=== PATIENT | male | born 1985 | race Caucasian/White ===

== ENCOUNTER 2022-03-16 20:05 | Emergency (ER) | payer OTHER, SELFPAY ==
--- NOTE | ~2022-03-16 | XR_ITS ---
EXAMINATION: XR THORACOLUMBAR SPINE CLINICAL INFORMATION: Fall, back pain COMPARISON: Thoracic spine radiograph 08/07/2018 TECHNIQUE: 2 views of the thoracic spine 3 views of the lumbar spine the FINDINGS: No evidence for acute compression deformity in the thoracolumbar spine. Some increased sclerosis in the inferior endplate of L1 vertebral body anteriorly appears to be chronic. Alignment is normal. Sacroiliac joints are intact. Soft tissues unremarkable. XR/XR lumbar spine 2-3V IMPRESSION: No evidence for acute abnormality in the thoracolumbar spine.
--- NOTE | ~2022-03-16 | XR_ITS ---
EXAMINATION: XR THORACOLUMBAR SPINE CLINICAL INFORMATION: Fall, back pain COMPARISON: Thoracic spine radiograph 08/07/2018 TECHNIQUE: 2 views of the thoracic spine 3 views of the lumbar spine the FINDINGS: No evidence for acute compression deformity in the thoracolumbar spine. Some increased sclerosis in the inferior endplate of L1 vertebral body anteriorly appears to be chronic. Alignment is normal. Sacroiliac joints are intact. Soft tissues unremarkable. XR/XR thoracic spine 3V IMPRESSION: No evidence for acute abnormality in the thoracolumbar spine.
[2022-03-16 20:16] VITALS: BMI 29.8
[2022-03-16 21:10] VITALS: BP 128/85; PULSE 72; RESP 16; TEMP 36.4; O2SAT 97
[2022-03-16] MEDS: predniSONE 20 MG TABLET 40 MG PO (21:14)
--- NOTE | 2022-03-16 22:13 | ED.GENADULT ---
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 Patient states he fell due to slippery floor. Patient denies hitting head or loss of consciousness. He denies any chest pain, shortness of breath, dizziness, headache, or abdominal pain before falling. Patient states back pain worse on movement. Patient denies any other trauma or physical complaints. Related Data Previous Rx's Medication Instructions Recorded cyclobenzaprine 10 mg tablet 10 mg PO TID PRN 7 Days #21 tab 03/16/22 naproxen 500 mg tablet 500 mg PO BID PRN 10 Days #20 tab 03/16/22 prednisone 20 mg tablet 40 mg PO DAILY 5 Days #10 tab 03/16/22 Allergies Allergy/AdvReac Type Severity Reaction Status Date / Time No Known Allergies Allergy Unverified 08/07/20 19:12 [No Known Allergies*] Review of Systems Review of Systems: Back pain Yes all other systems are reviewed and are negative [facility] Social History Social History Advance Directives: No Advance Directives Information Provided: Yes Physical Exam ED Vital Signs: Vital Signs - 24 hr 03/16/22 21:10 Temperature 97.6 F Pulse Rate 72 Respiratory Rate 16 Blood Pressure 128/85 Pulse Oximetry 97 BMI result Body Mass Index 29.8 Const General: cooperative, healthy appearing, comfortable, no acute distress, well developed, alert, awake and Physically active Orientation/consciousness: patient oriented x3 HENMT Head: Yes normal to inspection, Yes No palpable skull fracture present, Yes normocephalic, Yes atraumatic and No abrasion Ears: hearing grossly normal bilaterally, external ears normal, TM's normal bilaterally, EAC's normal, mastoids normal and no periauricular adenopathy Eyes General: appearance normal, both eyes and all related structures Neck Neck: Yes normal visual inspection, Yes full ROM, Yes no lymphadenopathy, Yes no meningeal signs, Yes trachea midline, Yes supple, No anterior neck swelling and No tender Chest Chest palpation & inspection: normal inspection of the chest and normal palpation of entire chest wall Resp Effort & Inspection: normal respiratory effort and able to speak in complete sentences Auscultation: clear to auscultation bilaterally Cardio Jugular venous distension: no JVD Heart sounds: S1 normal heart sound present and S2 normal heart sound present GI Inspection: Yes normal to inspection and No abdominal wall ecchymosis Palpation (GI): Soft to palpation, not firm, nontender, no guarding and not rigid General: No CVA tenderness and Yes no CVA tenderness Back/Spine/Pelvis Back: no CVA tenderness, No CVA tenderness and back tenderness (Thoracic/lumbar tenderness) Skin General skin exam: no rashes or lesions noted and elasticity normal Neuro General: patient oriented x3, gait normal, tone normal, moves all extremities, Normal light touch and pain sensation, no meningeal signs, no focal motor deficits, CN's II-XI intact bilaterally and deep tendon reflexes 2+ bilaterally Extrem General: Yes normal to inspection and Yes full ROM Psych Appearance: grossly normal, well kempt and not disheveled Course Course Course Narrative: X-ray ordered. Toradol cancel due to patient taking Motrin 600 before before coming to the ER Reevaluation(s) Reevaluation #1: X-rays came back normal. Patient will be discharged with NSAIDs, muscle relaxer, and steroids. Patient given days off and told to follow up with [facility]. Time: 22:16 Discharge Plan Discharge Clinical Impression: Strain of lumbar region, Thoracic back pain Patient Disposition: Home, Self-Care Instructions: Low Back Strain (ED), Thoracic Back Strain (ED) Additional Instructions: Your x-rays came back negative for fractures. You will be discharged with NSAID/naproxen, muscle relaxer, and steroids. Do not take any other NSAIDs with naproxen prescription. Return to the ED immediately for worsening back pain, fever, chills, abdominal pain, nausea, vomiting, dysuria, hematuria, urinary/bowel incontinence, headache, dizziness, vomiting, or any other concerning symptoms. You need to follow-up with [facility]. Prescriptions: New naproxen 500 mg tablet 500 mg PO BID PRN (Reason: pain) 10 Days Qty: 20 0RF prednisone 20 mg tablet 40 mg PO DAILY 5 Days Qty: 10 0RF cyclobenzaprine 10 mg tablet 10 mg PO TID PRN (Reason: muscle spasm) 7 Days Qty: 21 0RF Rx Instructions: side effect is drowsiness. Do not take at work or while driving. Referrals: [facility] [Provider Group] (Fall at work. back pain) Stand Alone Forms: Work/School Release Interventions: ED Discharge Assessment Last Done: 03/16/22 22:43 Discharge Date/Time: 03/16/22 22:44 Print Language: Estonian
== END 2022-03-16 22:44 | disposition home or self-care (01) ==
PROVIDERS: Emergency Provider Emergency Medicine
DX: S39.012A Strain of muscle, fascia and tendon of lower back, initial encounter (principal); M54.6 Pain in thoracic spine; W01.0XXA Fall on same level from slipping, tripping and stumbling without subsequent striking against object, initial encounter; Y93.9 Activity, unspecified; Y92.9 Unspecified place or not applicable; Y99.0 Civilian activity done for income or pay
CPT/HCPCS: 72072; 72100; 96372; 99284

== ENCOUNTER → 2022-03-22 09:56 | Outpatient (BNVA) | payer OTHER, SELFPAY | PROVIDERS: Visit Provider Physician Assistant Medical | DX: S46.912A Strain of unspecified muscle, fascia and tendon at shoulder and upper arm level, left arm, initial encounter (principal); S29.012A Strain of muscle and tendon of back wall of thorax, initial encounter; S39.012A Strain of muscle, fascia and tendon of lower back, initial encounter; W01.0XXA Fall on same level from slipping, tripping and stumbling without subsequent striking against object, initial encounter | CPT/HCPCS: 99203 ==

== ENCOUNTER → 2022-03-25 08:05 | Outpatient (BNVA) | payer OTHER, SELFPAY | PROVIDERS: Visit Provider Physician Assistant Medical | DX: S46.912D Strain of unspecified muscle, fascia and tendon at shoulder and upper arm level, left arm, subsequent encounter (principal); S46.812D Strain of other muscles, fascia and tendons at shoulder and upper arm level, left arm, subsequent encounter; S29.012D Strain of muscle and tendon of back wall of thorax, subsequent encounter; S39.012D Strain of muscle, fascia and tendon of lower back, subsequent encounter; W19.XXXD Unspecified fall, subsequent encounter | CPT/HCPCS: 99213 ==

== ENCOUNTER → 2022-04-01 08:01 | Outpatient (BNVA) | payer OTHER, SELFPAY | PROVIDERS: Visit Provider Physician Assistant Medical | DX: S29.012D Strain of muscle and tendon of back wall of thorax, subsequent encounter (principal); S39.012D Strain of muscle, fascia and tendon of lower back, subsequent encounter; W19.XXXD Unspecified fall, subsequent encounter | CPT/HCPCS: 99213 ==

== ENCOUNTER → 2022-04-08 08:05 | Outpatient (BNVA) | payer OTHER, SELFPAY | PROVIDERS: Visit Provider Physician Assistant Medical | DX: S29.012D Strain of muscle and tendon of back wall of thorax, subsequent encounter (principal); S39.012D Strain of muscle, fascia and tendon of lower back, subsequent encounter; W19.XXXD Unspecified fall, subsequent encounter | CPT/HCPCS: 99213 ==

== ENCOUNTER 2022-04-23 07:15 | Outpatient (RCR) | payer OTHER, SELFPAY ==
--- NOTE | 2022-04-23 12:33 | MHC.PT.EP ---
[facility] [place] Office [place] Office [place] Office [address] Marilu Morgan [address] [phone] F: [phone] F: [phone] F: [phone] F: [phone] Physical Therapy Plan of Care Date of Evaluation: Date of Surgery: Diagnosis: THORACIC LUMBAR STRAIN Assessment: 36 YO MALE REF TO PT S/P SLIPPING AND FALLING ONTO LEFT SIDE WHILE AT WORK ON 03/16/22. HE WORKS FULL-TIME A HRIS ANALYST, CURRENTLY IS ON LIGHT DUTY W 5 LB LIFTING RESTRICTION- HE NOTES HIS PAIN HAS DECREASED SINCE INITIAL INJURY. OBJECTIVE FINDINGS: (+) SOFT TISSUE TENSION KAILEE THORACOLS PS MM/ POSTERIOR CHAIN, DECR HIP FLEXIB, WFL STRENGTH, (-) RADIC SXS, (+) DORCAS Rt AND (+) DARRYL'S TEST Rt LS, AND PAIN / ACHE IN KAILEE THORACOLUMB REGION. FUNCTIONALLY, Pt HAS BEEN TRYING TO INTRODUCE PROGR STRETCHES AND LIGHT WALKING- HE IS LIMITED W LIFTING OBJECTS, REACHING, AND GENERAL MOBILITY CREATES SOME DISCOMFORT. HE DENIES BOWEL/ BLADDER SIGNS AND SXS. Pt WOULD BENEFIT FROM PT TO ADDRESS THE ABOVE FINDINGS, PAIN MGMT, DEV SELF- SX MGMT STRATEGIES, AND ASSIST Pt W RTW/ RD. Frequency and Duration: The patient will be seen 2 x WK x 4 WKS Short Term Goals: *Pt'S LBP DECR TO 2-3/10 IN 2 WKS *Pt DEMON WFL FLEXIBILITY IN KAILEE HIP ROTAT / HS IN 2 WKS * Pt DEMON PROPER FUNCT SQUAT AND POSTURAL SELF-CORRECT TECHN IN 2 WKS Snf Goals: *Pt SIMUL 3:3 ADLs / WORK TASKS W PROPER MECHANICS IN 4 WKS *Pt DEMON IMPROVED CORE STAB/ STRENGTH EVIDENT IN IMPROVED QSWESTRY SCORE BY 3-5 POINTS (13/50 AT EVAL) IN 4 WKS *Pt INDEP W HEP, PROGRESSIVE STRENGTHENING, AND SELF-SX MGMT STRATEGIES IN 4 WKS Treatment Plan: Modalities to reduce pain, spasms and effusion. Manual therapy to restore motion and function. Therapeutic exercise to improve strength and flexibility. Neuromuscular re-education for posture and balance. Therapeutic activities to return to functional activities of daily living. Electronically signed by: Roxana Bran PT Please sign and return to therapist. Thank you for your referral.
--- NOTE | 2022-05-03 07:23 | MHC.PT.DC ---
[facility] [place] Office [place] Office [place] Office [address] Marilu Morgan [address] [phone] F: [phone] F: [phone] F: [phone] F: [phone] Physical Therapy Discharge Report Diagnosis: THORACIC LUMBAR STRAIN Date of Surgery: Date of Evaluation: 04/23/22 Date of Discharge: 05/03/22 Treatments to Date: 1 Cancellations to Date: 0 No Shows to Date: 3 Discharge Status: Visit Non-compliance Discharge Summary: Pt NO-SHOWED FOR 3 CONSECUTIVE APPTS, DESPITE PHONE CALL AND TEXTS. HE IS D/C'D FROM PT AT THIS TIME. Electronically signed by: Roxana Bran,PT Please sign and return to therapist. Thank you for your referral.
== END 2022-05-03 07:24 | disposition home or self-care (01) ==
LOC: HO.PT 07:15
PROVIDERS: Visit Provider Physician Assistant Medical
DX: S39.012D Strain of muscle, fascia and tendon of lower back, subsequent encounter (principal); S29.012D Strain of muscle and tendon of back wall of thorax, subsequent encounter; M62.830 Muscle spasm of back
CPT/HCPCS: 97112; 97162

== ENCOUNTER → 2022-04-26 08:13 | Outpatient (BNVA) | payer OTHER, SELFPAY | PROVIDERS: Visit Provider Physician Assistant Medical | DX: S29.012D Strain of muscle and tendon of back wall of thorax, subsequent encounter (principal); S39.012D Strain of muscle, fascia and tendon of lower back, subsequent encounter; W18.30XD Fall on same level, unspecified, subsequent encounter | CPT/HCPCS: 99213 ==

== ENCOUNTER → 2022-05-06 07:58 | Outpatient (BNVA) | payer OTHER, SELFPAY | PROVIDERS: Visit Provider Physician Assistant Medical | DX: S29.012D Strain of muscle and tendon of back wall of thorax, subsequent encounter (principal); S39.012D Strain of muscle, fascia and tendon of lower back, subsequent encounter; W18.30XD Fall on same level, unspecified, subsequent encounter | CPT/HCPCS: 99213 ==

== ENCOUNTER → 2022-06-25 09:09 | Outpatient (BNVA) | payer OTHER, SELFPAY | DX: Z13.89 Encounter for screening for other disorder (principal) ==